=== PATIENT | male | born 1980 | race Caucasian/White ===

== ENCOUNTER 2023-11-08 19:31 | Outpatient (CLI) | payer BC, SELFPAY ==
--- NOTE | 2023-11-22 12:59 | W.PM.SLEEP ---
Sleep Study Details Details Interpreting Provider: Catherine Date of Sleep Study: 11/08/23 Sleep Study Details: STUDY TYPE:? Home unattended ? BMI:? 28.1 ORDERING PROVIDER:? Catherine INDICATION:? Concern about sleep apnea ? SLEEP SUMMARY:? 422.4 minutes monitored RESPIRATORY SUMMARY:? AHI 21 Low oxygen 77 11.5% of study oxygen less than 90% Snoring 72.3% PERIODIC LIMB MOVEMENTS OF SLEEP:? Not recorded CARDIAC:? Range 42-92, mean 58.7 IMPRESSION:? Moderate obstructive sleep apnea worse in the supine position RECOMMENDATION: Treatment options include CPAP, dental appliance and/or airway expansion surgery.
== END 2023-11-08 19:32 | disposition home or self-care (01) ==
LOC: SLEEP 19:32
PROVIDERS: PCP Physician Assistant Medical; Visit Provider Otolaryngology
DX: G47.33 Obstructive sleep apnea (adult) (pediatric) (principal)
CPT/HCPCS: 95806